=== PATIENT | male | born 1965 | race African-American/Black ===

== ENCOUNTER 2025-01-09 10:13 | Inpatient (IN) | payer OTHER ==
[2025-01-09 10:49] VITALS: BMI 40.6
[2025-01-09 11:53] LABS: ABSOLUTE IMMATURE GRANULOCYTES 0.09 x10^3/uL (0.0-0.031); BASOPHILS # 0.05 x10^3/uL (0.01-0.08); EOSINOPHIL % 1.9 % (0.8-7.0); EOSINOPHILS # 0.26 x10^3/uL (0.04-0.54); HEMATOCRIT 30.8 % (40.1-51.0); HEMOGLOBIN 9.3 g/dL (13.7-17.5); MCHC 30.2 g/dl (32.3-36.5); MEAN CELL VOLUME 91.9 fl (79.0-92.2); MEAN PLT VOLUME 9.6 fl (9.4-12.4); MONOCYTE # 0.98 x10^3/uL (0.30-0.82); MONOCYTE % 7.2 % (5.3-12.2); PLATELET COUNT 305 x10^3/uL (163-337); RDW 18.8 % (12.2-16.1)
[2025-01-09 12:12] LABS: POTASSIUM 4.6 mmol/L (3.5-5.1)
[2025-01-09 12:14] LABS: ALBUMIN 2.4 g/dl (3.4-5.0); BLOOD UREA NITROGEN 42.2 mg/dL (7-18); CALCIUM 8.8 mg/dL (8.5-10.1)
[2025-01-09 12:17] LABS: CREATININE 6.9 mg/dL (0.55-1.3)
[2025-01-09 12:18] LABS: PHOSPHOROUS 3.1 mg/dL (2.5-4.9)
[2025-01-09 12:19] LABS: BILIRUBIN,TOTAL 0.4 mg/dL (0.2-1); TOT PROT 6.7 g/dl (6.4-8.2)
[2025-01-09 13:09] LABS: INR 1.43 (0.83-1.09); PROTHROMBIN TIME (PATIENT) 15.7 SEC (9.7-13.0)
[2025-01-09] MEDS ORDERED: PANTOPRAZOLE SODIUM 40 MG/100 ML BAG IVPB ONE (14:50)
[2025-01-09] MEDS: PANTOPRAZOLE SODIUM 40 MG VIAL IVPUSH ONE (14:59)
[2025-01-09] MEDS ORDERED: SODIUM CHLORIDE 250 ML IV PRN (16:58)
[2025-01-09] MEDS ORDERED: ACETAMINOPHEN 325 MG TABLET (FP) PO PRN (17:34)
[2025-01-09] MEDS: INSULIN ASPART SLIDING SCALE (NOVOLOG) 1 VIAL SQ SCH (18:08)
[2025-01-09] MEDS: EPOETIN ALFA-EPBX 10,000 UNIT/ML VIAL SQ ONE (19:04)
[2025-01-09 19:19] LABS: HCV DIAGNOSTIC IN-HOUSE W/RFLX NON-REACTIVE (NONREACTIVE)
[2025-01-09] MEDS ORDERED: QUEtiapine FUMARATE 25 MG TABLET ONE (21:44)
[2025-01-09] MEDS ORDERED: PANTOPRAZOLE SODIUM 40 MG VIAL IVPUSH SCH (22:00)
[2025-01-09] MEDS: SENNOSIDES 8.8 MG/5 ML SYRUP PO SCH (22:31)
[2025-01-09] MEDS: APIXABAN 5 MG TABLET PO SCH (22:31)
[2025-01-09] MEDS: QUEtiapine FUMARATE 50 MG TABLET PO SCH (22:31)
[2025-01-09] MEDS: POLYETHYLENE GLYCOL (HEALTHYLAX) 3350 17 GM PACKET PO SCH (22:32)
[2025-01-10] MEDS: BICTEGRAV/EMTRICIT/TENOFOV (BIKTARVY) 50-200-25 MG TABLET PO SCH (06:04)
[2025-01-10 10:00] LABS: HEMATOCRIT 26.7 % (40.1-51.0); MEAN CELL VOLUME 93.4 fl (79.0-92.2); MEAN PLT VOLUME 9.3 fl (9.4-12.4); PLATELET COUNT 301 x10^3/uL (163-337); RDW 19.4 % (12.2-16.1)
[2025-01-10 10:20] LABS: POTASSIUM 3.7 mmol/L (3.5-5.1)
[2025-01-10 10:22] LABS: BLOOD UREA NITROGEN 24.1 mg/dL (7-18); MAGNESIUM 1.8 mg/dL (1.8-2.4)
[2025-01-10 10:23] LABS: ALBUMIN 2.2 g/dl (3.4-5.0); CALCIUM 8.5 mg/dL (8.5-10.1)
[2025-01-10 10:26] LABS: PHOSPHOROUS 2.8 mg/dL (2.5-4.9)
[2025-01-10 10:27] LABS: BILIRUBIN,TOTAL 0.3 mg/dL (0.2-1); TOT PROT 5.9 g/dl (6.4-8.2)
[2025-01-10] MEDS: PANTOPRAZOLE 40 MG TABLET PO SCH (10:38)
[2025-01-10] MEDS: PREGABALIN 50 MG CAPSULE PO SCH (10:38)
[2025-01-10] MEDS: ACETAMINOPHEN 1000 MG/100 ML BAG IVPB ONE (15:52)
[2025-01-10] MEDS: LIDOCAINE 5% TOPICAL PATCH TP SCH (15:53)
[2025-01-10] MEDS: SODIUM CHLORIDE 500 ML IV STA (16:05)
[2025-01-10 18:29] LABS: BASOPHILS # 0.06 x10^3/uL (0.01-0.08); EOSINOPHIL % 3.3 % (0.8-7.0); EOSINOPHILS # 0.38 x10^3/uL (0.04-0.54); HEMATOCRIT 26.7 % (40.1-51.0); HEMOGLOBIN 8.1 g/dL (13.7-17.5); MCHC 30.3 g/dl (32.3-36.5); MEAN CELL VOLUME 94.3 fl (79.0-92.2); MONOCYTE # 1.03 x10^3/uL (0.30-0.82); PLATELET COUNT 307 x10^3/uL (163-337); RDW 19.4 % (12.2-16.1)
[2025-01-10] MEDS: ONDANSETRON 4 MG/2 ML VIAL IVPUSH ONE ×2 (19:16→19:25)
[2025-01-10 20:00] LABS: ABSOLUTE IMMATURE GRANULOCYTES 0.11 x10^3/uL (0.0-0.031); BASOPHILS # 0.04 x10^3/uL (0.01-0.08); EOSINOPHILS # 0.33 x10^3/uL (0.04-0.54); HEMATOCRIT 27.4 % (40.1-51.0); HEMOGLOBIN 8.2 g/dL (13.7-17.5); MCHC 29.9 g/dl (32.3-36.5); MEAN CELL VOLUME 94.2 fl (79.0-92.2); MONOCYTE # 0.92 x10^3/uL (0.30-0.82); MONOCYTE % 8.4 % (5.3-12.2); PLATELET COUNT 279 x10^3/uL (163-337); RDW 19.5 % (12.2-16.1)
[2025-01-10] MEDS ORDERED: QUEtiapine FUMARATE 25 MG TABLET ONE (20:30)
[2025-01-10] MEDS: MELATONIN 5 MG TABLETS PO PRN (21:29)
[2025-01-10] MEDS: LIDOCAINE PATCH REMOVAL MC SCH (21:29)
[2025-01-11 09:26] LABS: ABSOLUTE IMMATURE GRANULOCYTES 0.11 x10^3/uL (0.0-0.031); BASOPHILS # 0.03 x10^3/uL (0.01-0.08); EOSINOPHIL % 2.7 % (0.8-7.0); EOSINOPHILS # 0.37 x10^3/uL (0.04-0.54); HEMATOCRIT 26.7 % (40.1-51.0); HEMOGLOBIN 7.6 g/dL (13.7-17.5); MCHC 28.5 g/dl (32.3-36.5); MEAN CELL VOLUME 96.7 fl (79.0-92.2); MEAN PLT VOLUME 9.4 fl (9.4-12.4); MONOCYTE # 1.11 x10^3/uL (0.30-0.82); MONOCYTE % 8.2 % (5.3-12.2); PLATELET COUNT 277 x10^3/uL (163-337); RDW 19.1 % (12.2-16.1)
[2025-01-11] MEDS ORDERED: SODIUM CHLORIDE 250 ML IV PRN (09:30)
[2025-01-11 09:54] LABS: POTASSIUM 4.2 mmol/L (3.5-5.1)
[2025-01-11 10:23] LABS: BLOOD UREA NITROGEN 28.5 mg/dL (7-18); CALCIUM 8.8 mg/dL (8.5-10.1)
[2025-01-11 10:24] LABS: ALBUMIN 2.3 g/dl (3.4-5.0)
[2025-01-11 10:26] LABS: CREATININE 5.9 mg/dL (0.55-1.3)
[2025-01-11 10:28] LABS: BILIRUBIN,TOTAL 0.3 mg/dL (0.2-1); TOT PROT 5.9 g/dl (6.4-8.2)
[2025-01-11] MEDS: IRON SUCROSE INJECTION 100 MG in SODIUM CHLORIDE 95 ML IVPB ONE (12:37)
[2025-01-11] MEDS: EPOETIN ALFA-EPBX 10,000 UNIT/ML VIAL IVPUSH ONE (12:43)
[2025-01-11] MEDS ORDERED: QUEtiapine FUMARATE 25 MG TABLET ONE (21:12)
[2025-01-12 08:38] LABS: ABSOLUTE IMMATURE GRANULOCYTES 0.12 x10^3/uL (0.0-0.031); BASOPHILS # 0.05 x10^3/uL (0.01-0.08); EOSINOPHIL % 1.7 % (0.8-7.0); EOSINOPHILS # 0.28 x10^3/uL (0.04-0.54); HEMATOCRIT 28.6 % (40.1-51.0); HEMOGLOBIN 8.2 g/dL (13.7-17.5); MCHC 28.7 g/dl (32.3-36.5); MEAN CELL VOLUME 96.9 fl (79.0-92.2); MEAN PLT VOLUME 9.6 fl (9.4-12.4); MONOCYTE # 0.95 x10^3/uL (0.30-0.82); MONOCYTE % 5.9 % (5.3-12.2); PLATELET COUNT 343 x10^3/uL (163-337); RDW 19.5 % (12.2-16.1)
[2025-01-12 09:02] LABS: POTASSIUM 3.7 mmol/L (3.5-5.1)
[2025-01-12 09:06] LABS: ALBUMIN 2.3 g/dl (3.4-5.0); CALCIUM 8.9 mg/dL (8.5-10.1)
[2025-01-12 09:09] LABS: CREATININE 4.4 mg/dL (0.55-1.3)
[2025-01-12 09:10] LABS: BILIRUBIN,TOTAL 0.3 mg/dL (0.2-1)
[2025-01-12 09:11] LABS: TOT PROT 6.2 g/dl (6.4-8.2)
[2025-01-12] MEDS ORDERED: ACETAMINOPHEN 325 MG TABLET (FP) PO PRN (16:41)
[2025-01-12] MEDS: traMADol HCL 50 MG TABLET PO PRN (17:00)
[2025-01-12] MEDS: METOCLOPRAMIDE HCL INJECTION 10 MG/2 ML VIAL IVPUSH ONE (20:02)
[2025-01-12] MEDS ORDERED: QUEtiapine FUMARATE 25 MG TABLET ONE (21:29)
[2025-01-13 09:59] LABS: ABSOLUTE IMMATURE GRANULOCYTES 0.09 x10^3/uL (0.0-0.031); BASOPHILS # 0.04 x10^3/uL (0.01-0.08); EOSINOPHIL % 1.4 % (0.8-7.0); EOSINOPHILS # 0.25 x10^3/uL (0.04-0.54); HEMATOCRIT 28.3 % (40.1-51.0); HEMOGLOBIN 8.3 g/dL (13.7-17.5); MCHC 29.3 g/dl (32.3-36.5); MEAN CELL VOLUME 95.6 fl (79.0-92.2); MEAN PLT VOLUME 9.6 fl (9.4-12.4); MONOCYTE # 1.11 x10^3/uL (0.30-0.82); MONOCYTE % 6.1 % (5.3-12.2); PLATELET COUNT 356 x10^3/uL (163-337); RDW 18.8 % (12.2-16.1)
[2025-01-13] MEDS ORDERED: SODIUM CHLORIDE 250 ML IV PRN (16:30)
[2025-01-13] MEDS: BISACODYL 5 MG TABLET.DR (FP) PO ONE (17:03)
[2025-01-13] MEDS: PEG 3350/NA SULF BICARB CL/KCL 4000 ML SOLN.RECON PO ONE (17:58)
[2025-01-13] MEDS ORDERED: QUEtiapine FUMARATE 25 MG TABLET ONE (21:11)
[2025-01-14 04:07] LABS: ALBUMIN 2.1 g/dl (3.4-5.0); ALK PHOS 66 U/L (45-117); ANION GAP 7 mmol/L (4-13); BILIRUBIN,TOTAL 0.4 mg/dL (0.2-1); BLOOD UREA NITROGEN 22.8 mg/dL (7-18); CALCIUM 9.1 mg/dL (8.5-10.1); CHLORIDE 101 mmol/L (98-107); CO2 30 mmol/L (21-32); CREATININE 5.4 mg/dL (0.55-1.3); GLUCOSE,RANDOM 101 mg/dL (74-106); POTASSIUM 3.8 mmol/L (3.5-5.1); SGOT/AST 6 U/L (15-37); SGPT/ALT < 6 U/L (13-61); SODIUM 137 mmol/L (136-145); TOT PROT 5.6 g/dl (6.4-8.2)
[2025-01-14 10:01] LABS: ABSOLUTE IMMATURE GRANULOCYTES 0.13 x10^3/uL (0.0-0.031); BASOPHILS # 0.06 x10^3/uL (0.01-0.08); EOSINOPHIL % 2.3 % (0.8-7.0); EOSINOPHILS # 0.46 x10^3/uL (0.04-0.54); HEMATOCRIT 26.8 % (40.1-51.0); MCHC 29.9 g/dl (32.3-36.5); MEAN PLT VOLUME 9.2 fl (9.4-12.4); MONOCYTE # 1.21 x10^3/uL (0.30-0.82); MONOCYTE % 6.2 % (5.3-12.2); PLATELET COUNT 359 x10^3/uL (163-337); RDW 18.4 % (12.2-16.1)
[2025-01-14 10:07] LABS: INR 1.23 (0.83-1.09); PROTHROMBIN TIME (PATIENT) 13.4 SEC (9.7-13.0)
[2025-01-14 10:23] LABS: POTASSIUM 3.8 mmol/L (3.5-5.1)
[2025-01-14 10:31] LABS: ALBUMIN 2.1 g/dl (3.4-5.0); BLOOD UREA NITROGEN 28.3 mg/dL (7-18)
[2025-01-14 10:32] LABS: BILIRUBIN,TOTAL 0.3 mg/dL (0.2-1); TOT PROT 5.5 g/dl (6.4-8.2)
[2025-01-14 10:34] LABS: CREATININE 6.3 mg/dL (0.55-1.3)
[2025-01-14] MEDS ORDERED: DEXMEDETOMIDINE HCL 200 MCG/2 ML IVPB ONE (10:56)
[2025-01-14] MEDS ORDERED: MIDAZOLAM HCL 2 MG/2 ML SINGLE DOSE VIAL ONE (11:08)
[2025-01-14] MEDS: PIPERACILLIN/TAZOB 2.25 GM 2.25 GM/50 ML BAG IVPB SCH (13:24)
[2025-01-14] MEDS: PANTOPRAZOLE 40 MG TABLET PO SCH (21:16)
[2025-01-14] MEDS: traMADol HCL 50 MG TABLET PO ONE ×2 (22:46→22:58)
[2025-01-15 08:53] LABS: ABSOLUTE IMMATURE GRANULOCYTES 0.12 x10^3/uL (0.0-0.031); BASOPHILS # 0.05 x10^3/uL (0.01-0.08); EOSINOPHIL % 3.1 % (0.8-7.0); EOSINOPHILS # 0.51 x10^3/uL (0.04-0.54); HEMATOCRIT 26.8 % (40.1-51.0); HEMOGLOBIN 7.9 g/dL (13.7-17.5); MCHC 29.5 g/dl (32.3-36.5); MEAN CELL VOLUME 94.4 fl (79.0-92.2); MEAN PLT VOLUME 9.6 fl (9.4-12.4); MONOCYTE # 0.88 x10^3/uL (0.30-0.82); MONOCYTE % 5.4 % (5.3-12.2); PLATELET COUNT 343 x10^3/uL (163-337); RDW 18.3 % (12.2-16.1)
[2025-01-15 09:21] LABS: CHLORIDE 98 mmol/L (98-107); POTASSIUM 4.1 mmol/L (3.5-5.1); SODIUM 138 mmol/L (136-145)
[2025-01-15] MEDS: BICTEGRAV/EMTRICIT/TENOFOV (BIKTARVY) 50-200-25 MG TABLET PO SCH (10:00)
[2025-01-15 10:12] LABS: ALBUMIN 2.1 g/dl (3.4-5.0)
[2025-01-15 10:13] LABS: ANION GAP 11 mmol/L (4-13); BLOOD UREA NITROGEN 33.6 mg/dL (7-18); CO2 29 mmol/L (21-32); GLUCOSE,RANDOM 90 mg/dL (74-106)
[2025-01-15 10:16] LABS: CREATININE 7.3 mg/dL (0.55-1.3); SGOT/AST 4 U/L (15-37)
[2025-01-15 10:17] LABS: BILIRUBIN,TOTAL 0.4 mg/dL (0.2-1); TOT PROT 5.7 g/dl (6.4-8.2)
[2025-01-15] MEDS ORDERED: SODIUM CHLORIDE 250 ML IV PRN (10:19)
[2025-01-15 10:20] LABS: SGPT/ALT < 6 U/L (13-61)
[2025-01-15 10:22] LABS: ALK PHOS 71 U/L (45-117)
[2025-01-15] MEDS: EPOETIN ALFA-EPBX 10,000 UNIT/ML VIAL SQ ONE (10:29)
[2025-01-15] MEDS: traMADol HCL 50 MG TABLET PO PRN (17:17)
[2025-01-15] MEDS: EPOETIN ALFA-EPBX 10,000 UNIT/ML VIAL IVPUSH ONE (19:44)
[2025-01-15] MEDS ORDERED: QUEtiapine FUMARATE 25 MG TABLET ONE (20:55)
[2025-01-16 07:45] VITALS: TEMP 98.2
[2025-01-16 10:21] VITALS: BP 99/58; PULSE 62; RESP 18
== END 2025-01-16 10:53 | DRG 391 ==
LOC: JER 10:13 → JERBED 13:46 → J5S 15:36
PROVIDERS: ADMIT Internal Medicine; ATTEND Internal Medicine
PROC: 5A1D70Z Performance of Urinary Filtration, Intermittent, Less than 6 Hours Per Day (ICD-10-PCS; 2025-01-09)
PROC: 0DJD8ZZ Inspection of Lower Intestinal Tract, Via Natural or Artificial Opening Endoscopic (ICD-10-PCS; 2025-01-14)
PROC: 0DB68ZX Excision of Stomach, Via Natural or Artificial Opening Endoscopic, Diagnostic (ICD-10-PCS; principal; 2025-01-14 11:00)
DX: K29.60 Other gastritis without bleeding (principal); N18.6 End stage renal disease; I12.0 Hypertensive chronic kidney disease with stage 5 chronic kidney disease or end stage renal disease; Z68.41 Body mass index [BMI] 40.0-44.9, adult; K92.0 Hematemesis; J45.909 Unspecified asthma, uncomplicated; E11.22 Type 2 diabetes mellitus with diabetic chronic kidney disease; Z99.2 Dependence on renal dialysis; F25.9 Schizoaffective disorder, unspecified; D64.9 Anemia, unspecified; Z86.74 Personal history of sudden cardiac arrest; E66.01 Morbid (severe) obesity due to excess calories; K63.5 Polyp of colon; D72.829 Elevated white blood cell count, unspecified; K57.30 Diverticulosis of large intestine without perforation or abscess without bleeding
CPT/HCPCS: 36415; 71045-TC-FY; 80053; 82272; 82728; 82962; 83540; 83550; 83735; 84100; 85025; 85027; 85610; 86359; 86360; 86704; 86803; 86850; 86870; 86880; 86900; 86901; 86902; 87040; 87070; 87186; 87205; 87340; 87517; 87536; 88305-TC; 88342-TC; 93005; 93010; 97116-GP; 97162-GP; 99285-25; J1756; Q5106

== ENCOUNTER 2025-01-18 17:58 | Inpatient (IN) | payer OTHER ==
[2025-01-18] MEDS ORDERED: PIPERACILLIN/TAZOB 4.5 GM 4.5 GM/100 ML BAG IVPB ONE (19:22)
[2025-01-18] MEDS ORDERED: VANCOMYCIN 1 GM PREMIX (F) 1 GM/200 ML BAG ONE (19:23)
[2025-01-18] MEDS: PIPERACILLIN/TAZOB 4.5 GM 4.5 GM in DEXTROSE 5%-WATER 100 ML IVPB ONE (19:29)
[2025-01-18] MEDS: VANCOMYCIN 1,000 MG in DEXTROSE 5%-WATER - 250 ML IVPB ONE (19:45)
[2025-01-18] MEDS: IBUPROFEN (CALDOLOR) 800 MG/200 ML PREMIX BAGS IVPB ONE (19:45)
[2025-01-18 19:51] LABS: ABSOLUTE IMMATURE GRANULOCYTES 0.19 x10^3/uL (0.0-0.031); BASOPHILS # 0.07 x10^3/uL (0.01-0.08); EOSINOPHILS # 0.47 x10^3/uL (0.04-0.54); HEMATOCRIT 25.5 % (40.1-51.0); HEMOGLOBIN 7.8 g/dL (13.7-17.5); MCHC 30.6 g/dl (32.3-36.5); MEAN CELL VOLUME 92.1 fl (79.0-92.2); MEAN PLT VOLUME 9.4 fl (9.4-12.4); MONOCYTE # 1.14 x10^3/uL (0.30-0.82); MONOCYTE % 7.3 % (5.3-12.2); PLATELET COUNT 366 x10^3/uL (163-337); RDW 18.1 % (12.2-16.1)
[2025-01-18 19:53] LABS: VENOUS BASE EXCESS 2.8 mmol/L (-2-2); VENOUS O2 SATURATION 47.2 % (70-80); VENOUS PCO2 50.9 mmHg (38-52); VENOUS PH 7.368 (7.310-7.410)
[2025-01-18] MEDS: ACETAMINOPHEN 500 MG TABLET (FP) PO ONE (19:53)
[2025-01-18] MEDS ORDERED: ACETAMINOPHEN INJECTION 100 ML ONE (19:55)
[2025-01-18] MEDS: ACETAMINOPHEN 1000 MG/100 ML BAG IVPB ONE (19:57)
[2025-01-18 20:31] LABS: POTASSIUM 3.8 mmol/L (3.5-5.1)
[2025-01-18 20:33] LABS: ALBUMIN 2.2 g/dl (3.4-5.0); BLOOD UREA NITROGEN 17.3 mg/dL (7-18); CALCIUM 8.9 mg/dL (8.5-10.1); MAGNESIUM 1.9 mg/dL (1.8-2.4)
[2025-01-18 20:37] LABS: CREATININE 5.2 mg/dL (0.55-1.3)
[2025-01-18 20:38] LABS: BILIRUBIN,TOTAL 0.3 mg/dL (0.2-1); TOT PROT 6.2 g/dl (6.4-8.2)
[2025-01-18 20:42] LABS: N-TERMINAL BNP 31046.9 pg/ml (5-125)
[2025-01-19] MEDS ORDERED: ALBUTEROL SO4 2.5/IPRATROPIUM 0.5 INH SOL 3 ML VIAL.NEB. NEB PRN (01:51)
[2025-01-19 02:13] VITALS: BMI 40.4
[2025-01-19] MEDS: BICTEGRAV/EMTRICIT/TENOFOV (BIKTARVY) 50-200-25 MG TABLET PO SCH (06:53)
[2025-01-19 06:56] LABS: ABSOLUTE IMMATURE GRANULOCYTES 0.19 x10^3/uL (0.0-0.031); BASOPHILS # 0.06 x10^3/uL (0.01-0.08); EOSINOPHIL % 3.9 % (0.8-7.0); EOSINOPHILS # 0.49 x10^3/uL (0.04-0.54); HEMATOCRIT 26.4 % (40.1-51.0); HEMOGLOBIN 7.8 g/dL (13.7-17.5); MCHC 29.5 g/dl (32.3-36.5); MEAN PLT VOLUME 9.8 fl (9.4-12.4); MONOCYTE # 1.26 x10^3/uL (0.30-0.82); MONOCYTE % 10.1 % (5.3-12.2); PLATELET COUNT 394 x10^3/uL (163-337); RDW 17.7 % (12.2-16.1)
[2025-01-19 07:18] LABS: POTASSIUM 3.6 mmol/L (3.5-5.1)
[2025-01-19 07:25] LABS: ALBUMIN 2.1 g/dl (3.4-5.0)
[2025-01-19 07:26] LABS: BLOOD UREA NITROGEN 21.5 mg/dL (7-18); MAGNESIUM 1.9 mg/dL (1.8-2.4)
[2025-01-19] MEDS: INSULIN ASPART SLIDING SCALE (NOVOLOG) 1 VIAL SQ SCH (07:28)
[2025-01-19 07:29] LABS: CREATININE 6.1 mg/dL (0.55-1.3); PHOSPHOROUS 2.7 mg/dL (2.5-4.9)
[2025-01-19 07:30] LABS: BILIRUBIN,TOTAL 0.3 mg/dL (0.2-1); TOT PROT 5.8 g/dl (6.4-8.2)
[2025-01-19] MEDS ORDERED: PIPERACILLIN/TAZOB 2.25 GM/50 ML PREMIX BAG IVPB SCH (08:00)
[2025-01-19] MEDS ORDERED: ASPIRIN 81 MG CHEWABLE TABLETS PO SCH (10:00)
[2025-01-19] MEDS: ERGOCALCIFEROL (VIT D2) 50,000 UNIT (1.25 MG) CAPSULE PO SCH (11:09)
[2025-01-19] MEDS: PIPERACILLIN/TAZOB 2.25 GM 2.25 GM/50 ML BAG IVPB SCH (11:09)
[2025-01-19] MEDS: APIXABAN 5 MG TABLET PO SCH (11:10)
[2025-01-19] MEDS: PREGABALIN 50 MG CAPSULE PO SCH (11:10)
[2025-01-19] MEDS: POLYETHYLENE GLYCOL (HEALTHYLAX) 3350 17 GM PACKET PO SCH (11:10)
[2025-01-19] MEDS: HYDROmorphone HCL 2 MG TABLET PO PRN (11:49)
[2025-01-19] MEDS: AMMONIUM LACTATE 12% LOTION 225 GM BOTTLE TP SCH (12:15)
[2025-01-19] MEDS: COLLAGENASE CLOSTRIDIUM HIST. 30 GRAMS TUBE TP SCH (12:15)
[2025-01-19] MEDS: QUEtiapine FUMARATE 50 MG TABLET PO SCH (22:02)
[2025-01-19] MEDS: PIPERACILLIN/TAZOB 4.5 GM 4.5 GM/100 ML BAG IVPB SCH (22:03)
[2025-01-19] MEDS: PANTOPRAZOLE 40 MG TABLET PO SCH (23:00)
[2025-01-20] MEDS: HYDROmorphone HCL 2 MG TABLET PO PRN (01:23)
[2025-01-20] MEDS ORDERED: INSULIN ASPART SLIDING SCALE (NOVOLOG) 1 VIAL SQ ONE (06:33)
[2025-01-20 07:25] LABS: ABSOLUTE IMMATURE GRANULOCYTES 0.15 x10^3/uL (0.0-0.031); BASOPHILS # 0.04 x10^3/uL (0.01-0.08); EOSINOPHILS # 0.47 x10^3/uL (0.04-0.54); HEMOGLOBIN 7.8 g/dL (13.7-17.5); MEAN CELL VOLUME 92.2 fl (79.0-92.2); MEAN PLT VOLUME 9.8 fl (9.4-12.4); MONOCYTE # 0.88 x10^3/uL (0.30-0.82); MONOCYTE % 7.5 % (5.3-12.2); PLATELET COUNT 413 x10^3/uL (163-337); RDW 17.5 % (12.2-16.1)
[2025-01-20 07:44] LABS: CHLORIDE 99 mmol/L (98-107); POTASSIUM 3.6 mmol/L (3.5-5.1); SODIUM 137 mmol/L (136-145)
[2025-01-20 07:46] LABS: CALCIUM 8.9 mg/dL (8.5-10.1)
[2025-01-20 07:47] LABS: ALBUMIN 2.1 g/dl (3.4-5.0); ANION GAP 9 mmol/L (4-13); BLOOD UREA NITROGEN 25.9 mg/dL (7-18); CO2 29 mmol/L (21-32); GLUCOSE,RANDOM 90 mg/dL (74-106); MAGNESIUM 1.7 mg/dL (1.8-2.4)
[2025-01-20 07:50] LABS: CREATININE 7.3 mg/dL (0.55-1.3); SGOT/AST 5 U/L (15-37); SGPT/ALT < 6 U/L (13-61)
[2025-01-20 07:51] LABS: BILIRUBIN,TOTAL 0.3 mg/dL (0.2-1); TOT PROT 5.7 g/dl (6.4-8.2)
[2025-01-20 07:53] LABS: ALK PHOS 61 U/L (45-117)
[2025-01-20] MEDS: MAGNESIUM 2GM/50ML STERILE WATER IVPB IVPB ONE (11:43)
[2025-01-20] MEDS ORDERED: SODIUM CHLORIDE 250 ML IV PRN (14:23)
[2025-01-20] MEDS: VANCOMYCIN/WATER FOR INJ (PEG) 1,000 MG/200 ML BAG IVPB ONE (14:54)
[2025-01-21 07:09] LABS: ABSOLUTE IMMATURE GRANULOCYTES 0.33 x10^3/uL (0.0-0.031); BASOPHILS # 0.04 x10^3/uL (0.01-0.08); EOSINOPHIL % 5.1 % (0.8-7.0); EOSINOPHILS # 0.62 x10^3/uL (0.04-0.54); HEMATOCRIT 23.7 % (40.1-51.0); HEMOGLOBIN 7.3 g/dL (13.7-17.5); MCHC 30.8 g/dl (32.3-36.5); MEAN CELL VOLUME 90.8 fl (79.0-92.2); MEAN PLT VOLUME 9.4 fl (9.4-12.4); MONOCYTE # 1.09 x10^3/uL (0.30-0.82); MONOCYTE % 8.9 % (5.3-12.2); PLATELET COUNT 382 x10^3/uL (163-337); RDW 17.2 % (12.2-16.1)
[2025-01-21 07:32] LABS: CHLORIDE 98 mmol/L (98-107); POTASSIUM 3.2 mmol/L (3.5-5.1); SODIUM 136 mmol/L (136-145)
[2025-01-21 07:35] LABS: CALCIUM 8.8 mg/dL (8.5-10.1)
[2025-01-21 07:36] LABS: ANION GAP 8 mmol/L (4-13); BLOOD UREA NITROGEN 29.2 mg/dL (7-18); CO2 29 mmol/L (21-32); GLUCOSE,RANDOM 110 mg/dL (74-106)
[2025-01-21 07:39] LABS: SGOT/AST 7 U/L (15-37); SGPT/ALT < 6 U/L (13-61)
[2025-01-21 07:41] LABS: BILIRUBIN,TOTAL 0.2 mg/dL (0.2-1); TOT PROT 6.2 g/dl (6.4-8.2)
[2025-01-21 07:42] LABS: ALK PHOS 67 U/L (45-117)
[2025-01-21 07:57] LABS: CREATININE 8.4 mg/dL (0.55-1.3)
[2025-01-21] MEDS ORDERED: PIPERACILLIN/TAZOB 2.25 GM/50 ML PREMIX BAG IVPB SCH (08:00)
[2025-01-21] MEDS: MIDODRINE HCL 5 MG TABLET PO SCH (11:35)
[2025-01-21] MEDS: SEVELAMER CARBONATE 2.4 GM POWDER PACKET PO SCH (11:35)
[2025-01-21] MEDS: EPOETIN ALFA-EPBX 4,000 UNIT/ML VIAL IVPUSH ONE (13:15)
[2025-01-22 06:44] LABS: ABSOLUTE IMMATURE GRANULOCYTES 0.22 x10^3/uL (0.0-0.031); BASOPHILS # 0.03 x10^3/uL (0.01-0.08); EOSINOPHIL % 4.2 % (0.8-7.0); HEMATOCRIT 26.8 % (40.1-51.0); MCHC 29.9 g/dl (32.3-36.5); MEAN CELL VOLUME 91.8 fl (79.0-92.2); MEAN PLT VOLUME 9.5 fl (9.4-12.4); MONOCYTE # 0.96 x10^3/uL (0.30-0.82); MONOCYTE % 8.1 % (5.3-12.2); PLATELET COUNT 363 x10^3/uL (163-337); RDW 17.6 % (12.2-16.1)
[2025-01-22 06:49] LABS: POTASSIUM 3.5 mmol/L (3.5-5.1)
[2025-01-22 06:53] LABS: CALCIUM 8.7 mg/dL (8.5-10.1)
[2025-01-22 06:54] LABS: BLOOD UREA NITROGEN 18.4 mg/dL (7-18); MAGNESIUM 1.9 mg/dL (1.8-2.4)
[2025-01-22 06:59] LABS: BILIRUBIN,TOTAL 0.2 mg/dL (0.2-1); TOT PROT 5.8 g/dl (6.4-8.2)
[2025-01-22] MEDS: ALBUTEROL SO4 2.5/IPRATROPIUM 0.5 INH SOL 3 ML VIAL.NEB. NEB SCH (13:22)
[2025-01-23 06:34] LABS: CHLORIDE 100 mmol/L (98-107); POTASSIUM 3.6 mmol/L (3.5-5.1); SODIUM 138 mmol/L (136-145)
[2025-01-23 06:36] LABS: CALCIUM 8.9 mg/dL (8.5-10.1)
[2025-01-23 06:37] LABS: ANION GAP 8 mmol/L (4-13); BLOOD UREA NITROGEN 24.4 mg/dL (7-18); CO2 30 mmol/L (21-32); GLUCOSE,RANDOM 144 mg/dL (74-106); MAGNESIUM 1.7 mg/dL (1.8-2.4)
[2025-01-23 06:40] LABS: CREATININE 7.4 mg/dL (0.55-1.3); SGOT/AST 6 U/L (15-37); SGPT/ALT < 6 U/L (13-61)
[2025-01-23 06:41] LABS: BILIRUBIN,TOTAL 0.2 mg/dL (0.2-1); TOT PROT 5.7 g/dl (6.4-8.2)
[2025-01-23 06:43] LABS: ALK PHOS 76 U/L (45-117)
[2025-01-23 06:52] LABS: ABSOLUTE IMMATURE GRANULOCYTES 0.24 x10^3/uL (0.0-0.031); BASOPHILS # 0.03 x10^3/uL (0.01-0.08); EOSINOPHIL % 4.3 % (0.8-7.0); EOSINOPHILS # 0.57 x10^3/uL (0.04-0.54); HEMATOCRIT 25.2 % (40.1-51.0); HEMOGLOBIN 7.4 g/dL (13.7-17.5); MCHC 29.4 g/dl (32.3-36.5); MEAN CELL VOLUME 92.3 fl (79.0-92.2); MEAN PLT VOLUME 9.7 fl (9.4-12.4); MONOCYTE # 0.82 x10^3/uL (0.30-0.82); MONOCYTE % 6.2 % (5.3-12.2); PLATELET COUNT 389 x10^3/uL (163-337); RDW 17.7 % (12.2-16.1)
[2025-01-23] MEDS: MAGNESIUM SULFATE IN WATER 2 GM/50 ML IVPB IVPB ONE (09:29)
[2025-01-23] MEDS: SODIUM CHLORIDE 250 ML IV PRN (14:15)
[2025-01-23] MEDS: EPOETIN ALFA-EPBX 10,000 UNIT/ML VIAL SQ ONE (14:30)
[2025-01-23] MEDS: PRAMIPEXOLE DIHYDROCHLORIDE 0.25 MG TABLET PO SCH (22:52)
[2025-01-23] MEDS: PREGABALIN 50 MG CAPSULE PO SCH (22:53)
[2025-01-24 06:54] LABS: ABSOLUTE IMMATURE GRANULOCYTES 0.26 x10^3/uL (0.0-0.031); BASOPHILS # 0.06 x10^3/uL (0.01-0.08); EOSINOPHIL % 4.3 % (0.8-7.0); EOSINOPHILS # 0.59 x10^3/uL (0.04-0.54); HEMATOCRIT 25.1 % (40.1-51.0); HEMOGLOBIN 7.5 g/dL (13.7-17.5); MCHC 29.9 g/dl (32.3-36.5); MEAN CELL VOLUME 91.9 fl (79.0-92.2); MEAN PLT VOLUME 9.5 fl (9.4-12.4); MONOCYTE # 0.89 x10^3/uL (0.30-0.82); MONOCYTE % 6.5 % (5.3-12.2); PLATELET COUNT 378 x10^3/uL (163-337)
[2025-01-24 07:06] LABS: CHLORIDE 102 mmol/L (98-107); POTASSIUM 3.9 mmol/L (3.5-5.1); SODIUM 140 mmol/L (136-145)
[2025-01-24 07:17] LABS: ALBUMIN 2.1 g/dl (3.4-5.0)
[2025-01-24 07:18] LABS: ANION GAP 7 mmol/L (4-13); BLOOD UREA NITROGEN 14.8 mg/dL (7-18); CO2 30 mmol/L (21-32); GLUCOSE,RANDOM 140 mg/dL (74-106); MAGNESIUM 1.8 mg/dL (1.8-2.4)
[2025-01-24 07:21] LABS: SGOT/AST 5 U/L (15-37); SGPT/ALT < 6 U/L (13-61)
[2025-01-24 07:22] LABS: BILIRUBIN,TOTAL 0.2 mg/dL (0.2-1); TOT PROT 5.8 g/dl (6.4-8.2)
[2025-01-24 07:23] LABS: ALK PHOS 72 U/L (45-117)
[2025-01-24 07:29] LABS: IRON SERUM 37 ug/dL (50-175)
[2025-01-24 07:30] LABS: TOTAL IRON BINDING CAPACITY 134 ug/dL (250-450)
[2025-01-24] MEDS: LORazepam 2 MG/ML SDV VIAL IVPUSH ONE (09:32)
[2025-01-25 06:35] LABS: ABSOLUTE IMMATURE GRANULOCYTES 0.23 x10^3/uL (0.0-0.031); BASOPHILS # 0.07 x10^3/uL (0.01-0.08); EOSINOPHIL % 4.5 % (0.8-7.0); HEMATOCRIT 28.9 % (40.1-51.0); HEMOGLOBIN 8.4 g/dL (13.7-17.5); MCHC 29.1 g/dl (32.3-36.5); MEAN CELL VOLUME 94.1 fl (79.0-92.2); MEAN PLT VOLUME 9.9 fl (9.4-12.4); MONOCYTE # 0.96 x10^3/uL (0.30-0.82); MONOCYTE % 6.2 % (5.3-12.2); PLATELET COUNT 420 x10^3/uL (163-337); RDW 18.2 % (12.2-16.1)
[2025-01-25 07:05] LABS: POTASSIUM 4.1 mmol/L (3.5-5.1)
[2025-01-25 07:08] LABS: CALCIUM 9.6 mg/dL (8.5-10.1)
[2025-01-25 07:09] LABS: BLOOD UREA NITROGEN 23.5 mg/dL (7-18); MAGNESIUM 1.8 mg/dL (1.8-2.4)
[2025-01-25 07:12] LABS: CREATININE 6.7 mg/dL (0.55-1.3); PHOSPHOROUS 3.3 mg/dL (2.5-4.9)
[2025-01-25] MEDS: EPOETIN ALFA-EPBX 10,000 UNIT/ML VIAL IVPUSH ONE (10:02)
[2025-01-25] MEDS: VANCOMYCIN/WATER FOR INJ (PEG) 750 MG/150 ML BAG IVPB ONE (16:02)
[2025-01-25] MEDS ORDERED: SODIUM CHLORIDE 250 ML IV PRN (16:17)
[2025-01-26 06:37] LABS: BASOPHILS # 0.07 x10^3/uL (0.01-0.08); EOSINOPHIL % 3.7 % (0.8-7.0); EOSINOPHILS # 0.59 x10^3/uL (0.04-0.54); HEMATOCRIT 25.4 % (40.1-51.0); HEMOGLOBIN 7.6 g/dL (13.7-17.5); MCHC 29.9 g/dl (32.3-36.5); MEAN PLT VOLUME 9.4 fl (9.4-12.4); MONOCYTE # 0.82 x10^3/uL (0.30-0.82); MONOCYTE % 5.2 % (5.3-12.2); PLATELET COUNT 415 x10^3/uL (163-337); RDW 18.4 % (12.2-16.1)
[2025-01-26 08:46] LABS: POTASSIUM 3.8 mmol/L (3.5-5.1)
[2025-01-26 08:48] LABS: BLOOD UREA NITROGEN 14.8 mg/dL (7-18); CALCIUM 9.2 mg/dL (8.5-10.1)
[2025-01-26 08:52] LABS: CREATININE 4.8 mg/dL (0.55-1.3)
[2025-01-26] MEDS ORDERED: SODIUM CHLORIDE 250 ML IV PRN (12:02)
[2025-01-26] MEDS: PREGABALIN 50 MG CAPSULE PO SCH (14:19)
[2025-01-26] MEDS: PRAMIPEXOLE DIHYDROCHLORIDE 0.25 MG TABLET PO SCH (14:19)
[2025-01-26] MEDS: ALBUTEROL SO4 2.5/IPRATROPIUM 0.5 INH SOL 3 ML VIAL.NEB. NEB SCH (15:28)
[2025-01-26] MEDS: HYDROmorphone HCL 2 MG TABLET PO PRN (17:07)
[2025-01-26] MEDS: INSULIN ASPART SLIDING SCALE (NOVOLOG) 1 VIAL SQ SCH (17:13)
[2025-01-26] MEDS ORDERED: QUEtiapine FUMARATE 25 MG TABLET ONE (21:04)
[2025-01-26] MEDS: APIXABAN 5 MG TABLET PO SCH (21:28)
[2025-01-26] MEDS: PANTOPRAZOLE 40 MG TABLET PO SCH (21:28)
[2025-01-26] MEDS: QUEtiapine FUMARATE 50 MG TABLET PO SCH (21:29)
[2025-01-26] MEDS: PIPERACILLIN/TAZOB 4.5 GM 4.5 GM/100 ML BAG IVPB SCH (21:29)
[2025-01-26] MEDS: AMMONIUM LACTATE 12% LOTION 225 GM BOTTLE TP SCH (22:12)
[2025-01-27] MEDS: BICTEGRAV/EMTRICIT/TENOFOV (BIKTARVY) 50-200-25 MG TABLET PO SCH (06:06)
[2025-01-27 08:23] LABS: ABSOLUTE IMMATURE GRANULOCYTES 0.17 x10^3/uL (0.0-0.031); BASOPHILS # 0.05 x10^3/uL (0.01-0.08); EOSINOPHILS # 0.54 x10^3/uL (0.04-0.54); HEMATOCRIT 23.4 % (40.1-51.0); MCHC 29.9 g/dl (32.3-36.5); MEAN CELL VOLUME 92.5 fl (79.0-92.2); MEAN PLT VOLUME 9.2 fl (9.4-12.4); MONOCYTE # 0.87 x10^3/uL (0.30-0.82); MONOCYTE % 6.4 % (5.3-12.2); PLATELET COUNT 369 x10^3/uL (163-337); RDW 18.1 % (12.2-16.1)
[2025-01-27 09:03] LABS: CALCIUM 9.1 mg/dL (8.5-10.1); CREATININE 6.6 mg/dL (0.55-1.3); POTASSIUM 3.9 mmol/L (3.5-5.1)
[2025-01-27] MEDS: POLYETHYLENE GLYCOL (HEALTHYLAX) 3350 17 GM PACKET PO SCH (10:02)
[2025-01-27 10:12] LABS: HEPATITIS B SURF AG NON-MATERN NON-REACTIVE (NONREACTIVE)
[2025-01-27] MEDS: ACETAMINOPHEN 325 MG TABLET (FP) PO PRN (10:25)
[2025-01-27] MEDS ORDERED: HYDROmorphone HCl 2 MG/ML VIAL IVPB PRN ×2 (11:19→11:46)
[2025-01-27] MEDS ORDERED: DOCUSATE NA 100 MG/10 ML UNIT-DOSE CUPS PO PRN (11:21)
[2025-01-27] MEDS ORDERED: HYDROmorphone HCL CARPU-JECT 2 MG/1 ML DISP.SYRIN IVPB PRN (11:48)
[2025-01-27] MEDS: HYDROmorphone HCL CARPU-JECT 2 MG/1 ML DISP.SYRIN IVPB PRN (13:49)
[2025-01-27] MEDS ORDERED: SODIUM CHLORIDE 250 ML IV PRN (13:59)
[2025-01-27] MEDS: COLLAGENASE CLOSTRIDIUM HIST. 30 GRAMS TUBE TP SCH (14:45)
[2025-01-27] MEDS ORDERED: QUEtiapine FUMARATE 25 MG TABLET ONE (21:17)
[2025-01-27 23:48] VITALS: RESP 18
[2025-01-28] MEDS: ALBUTEROL SO4 2.5/IPRATROPIUM 0.5 INH SOL 3 ML VIAL.NEB. NEB ONE (04:30)
[2025-01-28 08:46] LABS: ABSOLUTE IMMATURE GRANULOCYTES 0.18 x10^3/uL (0.0-0.031); BASOPHILS # 0.06 x10^3/uL (0.01-0.08); EOSINOPHIL % 4.5 % (0.8-7.0); EOSINOPHILS # 0.64 x10^3/uL (0.04-0.54); HEMATOCRIT 27.5 % (40.1-51.0); HEMOGLOBIN 7.8 g/dL (13.7-17.5); MCHC 28.4 g/dl (32.3-36.5); MEAN CELL VOLUME 94.2 fl (79.0-92.2); MEAN PLT VOLUME 9.9 fl (9.4-12.4); MONOCYTE # 0.98 x10^3/uL (0.30-0.82); MONOCYTE % 6.9 % (5.3-12.2); PLATELET COUNT 430 x10^3/uL (163-337); RDW 18.1 % (12.2-16.1)
[2025-01-28] MEDS ORDERED: HYDROmorphone HCL CARPU-JECT 2 MG/1 ML DISP.SYRIN IVPB PRN (10:05)
[2025-01-28] MEDS: MIDODRINE HCL 5 MG TABLET PO SCH (12:06)
[2025-01-28] MEDS: SEVELAMER CARBONATE 2.4 GM POWDER PACKET PO SCH (12:06)
[2025-01-28 12:10] LABS: ALBUMIN 2.2 g/dl (3.4-5.0); ALK PHOS 68 U/L (45-117); ANION GAP 8 mmol/L (4-13); BILIRUBIN,TOTAL 0.4 mg/dL (0.2-1); CHLORIDE 100 mmol/L (98-107); CO2 30 mmol/L (21-32); CREATININE 7.8 mg/dL (0.55-1.3); GLUCOSE,RANDOM 103 mg/dL (74-106); POTASSIUM 4.2 mmol/L (3.5-5.1); SGOT/AST 10 U/L (15-37); SGPT/ALT 7 U/L (13-61); SODIUM 138 mmol/L (136-145); TOT PROT 6.3 g/dl (6.4-8.2)
[2025-01-28] MEDS ORDERED: NALOXONE HCL 0.4 MG/ML VIAL ONE (13:00)
[2025-01-28] MEDS: NALOXONE HCL 0.4 MG/ML VIAL IVPUSH PRN (13:05)
[2025-01-28] MEDS ORDERED: EPOETIN ALFA-EPBX 10,000 UNIT/ML VIAL IVPUSH ONE (13:59)
[2025-01-28 14:35] VITALS: TEMP 98.4
[2025-01-28 15:16] VITALS: BP 90/65
[2025-01-28 15:37] VITALS: PULSE 110
[2025-02-02] MEDS ORDERED: ERGOCALCIFEROL (VIT D2) 50,000 UNIT (1.25 MG) CAPSULE PO SCH (10:00)
== END 2025-01-28 17:02 | DRG 189 ==
LOC: JER 17:58 → JERBED 21:11 → J2W 01-19 00:56 → J5S 01-26 11:37
PROVIDERS: ADMIT Hospitalist
PROC: 5A1D70Z Performance of Urinary Filtration, Intermittent, Less than 6 Hours Per Day (ICD-10-PCS; principal; 2025-01-28)
DX: J96.01 Acute respiratory failure with hypoxia (principal); L89.613 Pressure ulcer of right heel, stage 3; J15.1 Pneumonia due to Pseudomonas; N18.6 End stage renal disease; I12.0 Hypertensive chronic kidney disease with stage 5 chronic kidney disease or end stage renal disease; Z68.41 Body mass index [BMI] 40.0-44.9, adult; E66.01 Morbid (severe) obesity due to excess calories; E11.22 Type 2 diabetes mellitus with diabetic chronic kidney disease; Z99.2 Dependence on renal dialysis; D63.1 Anemia in chronic kidney disease; Z93.0 Tracheostomy status; Z21 Asymptomatic human immunodeficiency virus [HIV] infection status
CPT/HCPCS: 0241U-QW; 36415; 70450-TC; 71045-TC-FY; 72125-TC; 80048; 80053; 82550; 82607; 82803; 82962; 83036; 83540; 83550; 83605; 83735; 83880; 84100; 84439; 84443; 84484; 85025; 86705; 86707; 86803; 87040; 87340; 87350; 87481; 87517; 87522; 93005; 93010; 93306-TC; 93970-TC; 94640; 97116-GP; 97162-GP; 99285-25; G0480; J0131; Q5106